=== PATIENT | male | born 1985 | race Two or more races ===

== ENCOUNTER 2023-07-20 13:28 | Emergency (ER) | payer MEDICAID ==
[~2023-07-20] VITALS: Ht 175.3 cm; Wt 90.9 kg
[2023-07-20 13:33] VITALS: TEMP 98.3
[2023-07-20] MEDS ORDERED: CLOT15CR29 TP (14:29)
[2023-07-20] MEDS ORDERED: IBUPROFEN 600 MG TABLET PO ONE (15:15)
[2023-07-20 15:40] VITALS: BP 138/71; PULSE 89; RESP 18
== END 2023-07-20 15:41 | disposition home or self-care (01) ==
LOC: EMS 13:28
DX: B35.3 Tinea pedis (principal)
CPT/HCPCS: 82962; 99282